=== PATIENT | male | born 1950 | race Caucasian/White ===

== ENCOUNTER 2018-04-19 10:32 | Emergency (ER) | payer MEDICARE, OTHER, SELFPAY ==
[2018-04-19 11:06] VITALS: BP 159/96; PULSE 85; RESP 18; O2SAT 94
--- NOTE | 2018-04-19 11:28 | PC.NURSE ---
with chronic back pain, evaluated and treated at [facility], dexamethasone,dexim,fentanyl and valium,shot of lidocaine, ketamine,lidocare patch, tylenol and motrin. states, no relief, still with difficulty with movement and ambulation, pt dc at 6am, pt remain in his car for 5-6 hours, on arrival pt assisted with ems to [facility].
--- NOTE | 2018-04-19 11:31 | DI.MRI.S_ITS ---
PROCEDURE: MR LUMBAR SPINE WO/W CON INDICATIONS: back pain, fever, change in BM habits, possible infection or tumor. TECHNIQUE: Noncontrast sagittal T1 spin echo and T2 fast spin echo, sagittal STIR, axial T1 and T2 fast spin echo through the lumbar spine. In cases with scoliosis, additional coronal T2 fast spin echo may be performed. After the administration of contrast, sagittal and axial T1 spin echo with fat saturation through the lumbar spine. COMPARISON: [facility], , L-SPINE 2-3 VIEWS, 08/14/2013, 15:21. FINDINGS: Image quality: Excellent. Alignment and curvature: There is normal bony alignment. Marrow: Marrow is of normal overall signal. No acute vertebral body compression fractures. No suspicious marrow enhancement. Spinal cord: Conus medullaris terminates at the L1 level. Visualized spinal cord demonstrates normal signal, without suspicious enhancement. Paraspinous soft tissues: No paravertebral masses or abnormal enhancement. Note is made of a inferior left renal cortical simple appearing cyst, measuring up to 4.8 cm in maximal dimension. T12-L1: Moderate degenerative disc disease with a posterior broad-based transverse disc bulge, greater on the left than the right, with asymmetric foraminal stenosis mild on the right and moderate on the left with likelihood of asymmetric left-sided T12 nerve root impingement. L1-L2: Normal appearance. L2-L3: There is a mild to moderate degree of degenerative disc height reduction and desiccation with a mild posterior transverse disc bulge. Mild to moderate ligamentum flavum hypertrophy is present at this level, with mild concentric spinal stenosis as a result. L3-L4: Minimal degenerative disc disease, slight posterior disc bulge. Severe facet osteoarthritis with hyperostosis and prominent ligamentum flavum hypertrophy resulting in moderately severe spinal stenosis and asymmetric right greater than left foraminal stenosis asymmetrically impinging on the course of the L3 nerve roots, right greater than left. L4-L5: Mild degenerative disc disease, moderately severe bilateral facet osteoarthritis greater on the left than the right with moderate left and mild to moderate right foraminal stenosis and potential for asymmetric impingement on the course of the L4 nerve roots. L5-S1: Moderately severe to severe degenerative disc disease with disc height reduction and desiccation. There is symmetric moderately severe foraminal stenosis, but no spinal stenosis. What appeared to be postoperative changes of left sided laminotomy is present at this level. IMPRESSION: 1. No sign of underlying infection or neoplasm, or trauma/osteoporotic compression fracture. 2. Overall there is moderately severe degenerative disc disease and facet osteoarthritis as was previously the case. Plain film imaging 08/14/13. A definite interval worsening has not developed. Slight retrolisthesis of L5 on S1 is again noted, previously present. 3. There is moderately severe spinal stenosis at L3-4 due to the combined influences of a relatively mild degree of degenerative disc disease at this level but quite severe facet osteoarthritis and ligamentum flavum hypertrophy. 4. A disc herniation is not found. There is multilevel nerve root impingement along the lumbosacral neural foramen both symmetric and asymmetric as discussed in detail by level in the body of the report above, chronic. 5. What appears to be postsurgical change of left sided laminotomy is seen at L5-S1, without operative complication. Minimal subluxation is present along the lumbosacral spine, mild grade 1 at L5-S1 as was previously the case in 2013. Dictated by: Jose Castle M.D. on 04/19/2018 at 15:52 Approved by: Jose Castle M.D. on 04/19/2018 at 16:04
[2018-04-19 13:16] VITALS: BP 143/83; PULSE 77; RESP 12; O2SAT 100
--- NOTE | 2018-04-19 13:57 | ED_ITS ---
HPI - Extremity Injury (Lower) General Chief Complaint: Extremity Injury, Lower Stated Complaint: LOWER BACK PROBLEM Time Seen by Provider: 04/19/18 11:11 Source: patient, family and EMS Mode of arrival: EMS Limitations: no limitations History of Present Illness HPI Narrative: 67-year-old male with longstanding history of back problems presents to the emergency department via EMS for evaluation of terrible back pain with radiation to his right leg. He denies any specific injury but does state that he was bending over helping keep his dog in a particular position and his pain started after that. He denies specific bony injury. He denies neurologic symptoms such as numbness, weakness or bowel or bladder problems. He denies ft drop. His pain is intermittently worse upon standing and radiates along his lateral leg beyond his knee. He was seen and evaluated [facility] this morning and after a very thorough evaluation with multiple attempts at pain control he was sent home, placed in the back of his Subaru [place]ast[place] Onset (ago): hour(s) Severity: severe Severity scale (1-10): 10 Relieving factors: immobilization Exacerbating factors: weight bearing and movement Related Data Home Medications Medication Instructions Recorded Confirmed testosterone cypionate 1 dose IM DIRECTED 04/19/18 04/19/18 Previous Rx's Medication Instructions Recorded cyclobenzaprine 10 mg PO TID PRN #14 tab 04/19/18 hydrocodone-acetaminophen 1 tab PO Q4-6H PRN #14 tab 04/19/18 ibuprofen 600 mg PO TID-QID PRN #20 tab 04/19/18 methylprednisolone [Medrol (Delon)] See Label Instructions PO PER PKG 04/19/18 DIR #21 each walker #1 each 04/19/18 Allergies Allergy/AdvReac Type Severity Reaction Status Date / Time No Known Drug Allergies Allergy Verified 04/19/18 11:10 Review of Systems Review of Systems All systems reviewed & are unremarkable except as noted in HPI and below Constitutional Denies chills, Denies fever(s), Denies lethargy and Denies weakness Eyes Denies change in vision, Denies eye discharge, Denies irritation and Denies loss of vision ENT Ears, Nose, Mouth, and Throat: Denies change in voice, Denies neck pain and Denies sore throat Cardiovascular Denies chest pain, Denies irregular heart rhythm, Denies lightheadedness, Denies palpitations, Denies dyspnea, Denies dyspnea on exertion and Denies orthopnea Respiratory Denies cough, Denies dyspnea, Denies dyspnea on exertion and Denies wheezing Gastrointestinal Gastrointestinal: Denies abdominal pain, Denies change in bowel habits, Denies diarrhea, Denies nausea and Denies vomiting Genitourinary Denies hematuria, Denies flank pain, Denies urinary incontinence and Denies urinary urgency Musculoskeletal Reports limited range of motion, Denies neck pain and Reports radiating pain into limb Integumentary/Breasts Denies pruritus, Denies erythema, Denies rash and Denies wounds Neurologic Denies confusion, Denies loss of vision and Denies weakness Psychiatric Denies anxiety, Denies confusion, Denies depression, Denies homicidal ideation and Denies suicidal ideation Endocrine Denies palpitations Hematologic/Lymphatic Denies easy bruising Allergic/Immunologic Denies wheezing PFSH Social History Smoking Status: Never smoker Exam Narrative Exam Narrative: 67-year-old male requires EMS help to get him out of his car, obviously in pain Initial Vital Signs Initial Vital Signs: Vital Signs Pulse Rate 85 04/19/18 11:06 Respiratory Rate 18 04/19/18 11:06 Blood Pressure 159/96 H 04/19/18 11:06 Pulse Oximetry 94 04/19/18 11:06 Const General: cooperative and well developed Nutritional Appearance: well nourished Orientation: alert, awake, oriented x3 and not confused [facility] Head: normocephalic and atraumatic Ears: external ears normal and TM's normal bilaterally Nose: external nose normal and No nasal discharge Face and sinus: sinuses nontender, face symmetric, no sinus tenderness and No dry mucous membranes Mouth: oral mucosae normal and moist mucous membranes Teeth and gingiva: dentition normal Throat: tonsils normal and uvula midline Neck Neck: normal visual inspection, trachea midline, No lymphadenopathy, No midline deformity and No JVD Lymphatic: No lymphedema Chest Chest: normal inspection of the chest Resp Effort & Inspection: normal respiratory effort, able to speak in complete sentences, no respiratory distress and no use of accessory muscles Auscultation: clear to auscultation bilaterally, no rales, no rhonchi and no wheezes GI Inspection: non-distended Palpation: soft, no hepatosplenomegaly, No guarding, No pulsatile mass and No tender Auscultation: normal bowel sounds Back/Spine/Pelvis Back: back tenderness, No CVA tenderness and No erythema Cervical Spine: normal cervical lordosis Thoracic/Lumbar Spine: thoracic and lumbar spine normal to inspection, surgical scar(s) present, thoraco-lumbar ROM limited and straight leg raise positive Sacroiliac Joints: nontender Skin General: no rashes or lesions noted, No jaundice and No petechiae Neuro General: alert, oriented x3, gait normal and no focal motor deficits Speech: speech normal Extrem General: full ROM, no clubbing, cyanosis or edema, no pedal edema and no calf tenderness Course Orders Ordered: ED Orders 04/19/18 11:31 MR lumbar spine wo/w con Stat Reevaluation(s) Reevaluation #1: Patient able to ambulate, slowly but relatively comfortably after above-stated medications. Vital Signs - 8 hr 04/19/18 11:06 04/19/18 13:16 04/19/18 15:27 Pulse Rate 85 77 76 Respiratory Rate 18 12 18 Blood Pressure 159/96 H Blood Pressure [Right Arm] 143/83 H 140/79 H Pulse Oximetry 94 100 92 MDM - Extremity Injury (Lower) Differential Diagnosis Likely other (Epidural abscess, diskitis, osteomyelitis of the spine, as well as etiologies of the hip including labral tear, OA, etc. ) Medical Records Attestation: I reviewed the patient's medical records. Lab Data Attestation: I reviewed the patient's lab results. Imaging Data MRI - lumbar: Radiologist's impression: PROCEDURE: MR LUMBAR SPINE WO/W CON INDICATIONS: back pain, fever, change in BM habits, possible infection or tumor. TECHNIQUE: Noncontrast sagittal T1 spin echo and T2 fast spin echo, sagittal STIR, axial T1 and T2 fast spin echo through the lumbar spine. In cases with scoliosis, additional coronal T2 fast spin echo may be performed. After the administration of contrast, sagittal and axial T1 spin echo with fat saturation through the lumbar spine. COMPARISON: [facility], , -SPINE 2-3 VIEWS, 08/14/2013, 15:21. FINDINGS: Image quality: Excellent. Alignment and curvature: There is normal bony alignment. Marrow: Marrow is of normal overall signal. No acute vertebral body compression fractures. No suspicious marrow enhancement. Spinal cord: Conus medullaris terminates at the L1 level. Visualized spinal cord demonstrates normal signal, without suspicious enhancement. Paraspinous soft tissues: No paravertebral masses or abnormal enhancement. Note is made of a inferior left renal cortical simple appearing cyst, measuring up to 4.8 cm in maximal dimension. T12-L1: Moderate degenerative disc disease with a posterior broad-based transverse disc bulge, greater on the left than the right, with asymmetric foraminal stenosis mild on the right and moderate on the left with likelihood of asymmetric left-sided T12 nerve root impingement. L1-L2: Normal appearance. L2-L3: There is a mild to moderate degree of degenerative disc height reduction and desiccation with a mild posterior transverse disc bulge. Mild to moderate ligamentum flavum hypertrophy is present at this level, with mild concentric spinal stenosis as a result. L3-L4: Minimal degenerative disc disease, slight posterior disc bulge. Severe facet osteoarthritis with hyperostosis and prominent ligamentum flavum hypertrophy resulting in moderately severe spinal stenosis and asymmetric right greater than left foraminal stenosis asymmetrically impinging on the course of the L3 nerve roots, right greater than left. L4-L5: Mild degenerative disc disease, moderately severe bilateral facet osteoarthritis greater on the left than the right with moderate left and mild to moderate right foraminal stenosis and potential for asymmetric impingement on the course of the L4 nerve roots. L5-S1: Moderately severe to severe degenerative disc disease with disc height reduction and desiccation. There is symmetric moderately severe foraminal stenosis, but no spinal stenosis. What appeared to be postoperative changes of left sided laminotomy is present at this level. IMPRESSION: 1. No sign of underlying infection or neoplasm, or trauma/osteoporotic compression fracture. 2. Overall there is moderately severe degenerative disc disease and facet osteoarthritis as was previously the case. Plain film imaging 08/14/13. A definite interval worsening has not developed. Slight retrolisthesis of L5 on S1 is again noted, previously present. 3. There is moderately severe spinal stenosis at L3-4 due to the combined influences of a relatively mild degree of degenerative disc disease at this level but quite severe facet osteoarthritis and ligamentum flavum hypertrophy. 4. A disc herniation is not found. There is multilevel nerve root impingement along the lumbosacral neural foramen both symmetric and asymmetric as discussed in detail by level in the body of the report above, chronic. 5. What appears to be postsurgical change of left sided laminotomy is seen at L5-S1, without operative complication. Minimal subluxation is present along the lumbosacral spine, mild grade 1 at L5-S1 as was previously the case in 2013. Dictated by: Jose Castle M.D. on 04/19/2018 at 15:52 Approved by: Jose Castle M.D. on 04/19/2018 at 16:04 [facility] Narrative Medical decision making narrative: Multiple diagnoses including epidural abscess , diskitis, spinal cord compression, and hip etiologies including labral tear, arthritis versus others. Radiation of pain and worsening with axial load with possible subjective recent fever lead me to MRI of lumbar spine. These findings were unremarkable and patient responded well to appropriate meds. He has an upcoming appointment with Orthopedics and knows he may return for worsening or persistent symptoms Discharge Plan Departure Patient Disposition: Home, Self-Care Clinical Impression: Lumbar pain Instructions: Back Pain (Alternative Therapy), DI for Back Pain With Sciatica Activity Restrictions/Additional Instructions: You have been prescribed narcotic medications. While on these medications you cannot drive or operate heavy machinery. Additionally you cannot sign legal documents or perform any duties such as this. Many people get constipated on narcotic medications so it would be advisable to discuss stool softeners with the pharmacist when you pickler helper your prescription. Please understand that we cannot provide further refills of narcotics or controlled substances through the ED and your pain management will need to be through your Primary Care Provider Prescriptions: New cyclobenzaprine 10 mg tablet 10 mg PO TID PRN (Reason: muscle spasm) Qty: 14 RF: 0 hydrocodone-acetaminophen 5-325 mg tablet 1 tab PO Q4-6H PRN (Reason: pain) Qty: 14 RF: 0 ibuprofen 600 mg tablet 600 mg PO TID-QID PRN (Reason: pain) Qty: 20 RF: 0 methylprednisolone [Medrol (Delon)] 4 mg tablets,dose pack See Label Instructions PO PER PKG DIR Qty: 21 RF: 0 walker misc .ROUTE .MEDSUPPLY Qty: 1 RF: 0 No Action testosterone cypionate 100 mg/mL oil 1 dose IM DIRECTED RF: 0
[2018-04-19 15:27] VITALS: BP 140/79; PULSE 76; RESP 18; O2SAT 92
--- NOTE | 2018-04-19 17:00 | PC.NURSE ---
tolerated ambulation with walker, with steady gait, pt ambulate to bathroom, able to void. states, tolerated sitting and standing. pt also tolerating drinking water.
[2018-04-19 17:24] VITALS: BP 155/83; PULSE 71; RESP 16; O2SAT 98
== END 2018-04-19 17:25 | disposition home or self-care (01) ==
PROVIDERS: Emergency Provider Emergency Medicine
DX: M54.5 Low back pain (principal)
CPT/HCPCS: 72158; 81003; 99282; 99284

== ENCOUNTER → 2018-12-14 12:26 | Outpatient (CLI) | payer MEDICARE, OTHER, SELFPAY ==
--- NOTE | 2018-12-14 | DI.CT.S_ITS ---
PROCEDURE: CT SINUS SCREEN WO CON INDICATIONS: ACUTE SINUSITIS TECHNIQUE: Noncontrast 3.0 mm axial images acquired from the frontal sinuses to the mid-sella, with coronal and sagittal reformats. For radiation dose reduction, the following was used: automated exposure control, adjustment of mA and/or kV according to patient size. COMPARISON: None. FINDINGS: Image quality: Excellent. Mild mucosal thickening noted in the maxillary sinuses bilaterally and scattered throughout the anterior ethmoid air cells. Mild mucosal thickening noted in the left sphenoid sinus. Mild mucosal thickening noted in the right frontal sinus. 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 The ostiomeatal units are patent bilaterally. No air-fluid levels are identified. Nasal septum is deviated to the left. 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 Paradoxical right middle turbinate noted. No osseous thickening, osseous remodeling or osseous erosive change. Atherosclerotic calcifications noted in the cavernous segments of the internal carotid arteries. IMPRESSION: 1. Mild mucosal thickening involving the maxillary sinuses bilaterally, the ethmoid air cells bilaterally, the right frontal sinus and the left sphenoid sinus. 2. No air-fluid levels. 3. Leftward deviation of nasal septum. 4. Small bilateral owen bullosa. Dictated by: Mariela Gandhi MD, PhD on 12/14/2018 at 13:14 Approved by: Mariela Gandhi MD, PhD on 12/14/2018 at 13:18
== END ==
PROVIDERS: PCP Family Medicine; Visit Provider Family Medicine
DX: J01.90 Acute sinusitis, unspecified (principal); J32.4 Chronic pansinusitis; J30.9 Allergic rhinitis, unspecified; J34.2 Deviated nasal septum; J34.3 Hypertrophy of nasal turbinates
CPT/HCPCS: 70486

== ENCOUNTER → 2020-08-14 18:01 | Outpatient (CLI) | payer MEDICARE, OTHER, SELFPAY ==
--- NOTE | 2020-08-14 18:04 | DI.MRI.S_ITS ---
PROCEDURE: MR LUMBAR SPINE WO CON INDICATIONS: Spinal Stenosis,Lumbar region with neurolgenic CLA TECHNIQUE: Noncontrast sagittal T1 spin echo and T2 fast echo, sagittal STIR, axial T1 and T2 fast spin echo through the lumbar spine. In cases with scoliosis, additional coronal T2 fast spin echo may be performed. COMPARISON: Lumbar spine x-rays August 09, 2020. FINDINGS: Image quality: Excellent. Alignment and Curvature: There is mild L3-L4 anterolisthesis secondary to facet hypertrophy. There is trace L4-L5 anterolisthesis. There is mild T12-L1 retrolisthesis. There is trace L1-L2 and L2-L3 retrolisthesis. Bone Marrow: Reactive endplate changes noted adjacent to the T12-L1, L3-L4, L4-L5 and L5-S1 discs. No acute vertebral body compression fractures. Spinal Cord: Conus medullaris terminates at the L1 level. Visualized cord demonstrates normal signal and size. Paraspinous Soft Tissues: No paravertebral masses. T12-L1: Loss of disc space signal and height. Moderate, diffuse disc bulge. Mild bilateral facet hypertrophy. Mild ligamentum flavum hypertrophy. Mild to moderate narrowing of the central canal. Moderate right and severe left neural foraminal narrowing with compression of the exiting left T12 nerve root. L1-L2: Loss of disc signal. Mild, diffuse disc bulge. Mild bilateral facet hypertrophy. Mild ligamentum flavum hypertrophy. Mild narrowing of the central canal. Moderate bilateral neural foraminal narrowing. No neural compression. L2-L3: Loss of disc signal and slight loss of disc height. Moderate, diffuse disc bulge. Mild bilateral facet hypertrophy. Moderate ligamentum flavum hypertrophy. Severe narrowing of the central canal with slight compression of the nerve roots of the cauda equina. Severe right and moderate left neural foraminal narrowing with compression of the exiting right L2 nerve root. L3-L4: Loss of disc signal. Moderate, diffuse disc bulge. Severe facet and severe ligamentum flavum hypertrophy. Severe narrowing of the central canal with marked compression of the nerve roots of the cauda equina. Severe bilateral neural foraminal narrowing with compression of the exiting L3 nerve roots. L4-L5: Loss of disc signal. Mild, diffuse disc bulge. Moderate bilateral facet hypertrophy. Mild to moderate narrowing of the central canal. Moderate right and severe left neural foraminal narrowing with compression of the exiting left L4 nerve root. L5-S1: Loss of disc signal and height. Mild, diffuse disc bulge. Mild bilateral facet hypertrophy. No central stenosis. Mild right and severe left neural foraminal narrowing with compression of the exiting left L5 nerve root. IMPRESSION: 1. Multilevel degenerative disc disease. 2. Multilevel facet arthropathy. 3. Severe L2-L3 and L3-L4 central canal narrowing. 4. Severe left T12-L1, L4-L5 and L5-S1 neural foraminal narrowing. Severe right L2-L3 neural foraminal narrowing. Severe bilateral L3-L4 neural foraminal narrowing. Dictated by: Mariela Gandhi MD, PhD on 08/14/2020 at 17:58 Approved by: Mariela Gandhi MD, PhD on 08/14/2020 at 18:03
== END ==
PROVIDERS: PCP Family Medicine; Referring Provider Orthopaedic Surgery; Visit Provider Physical Medicine & Rehabilitation
DX: M48.062 Spinal stenosis, lumbar region with neurogenic claudication (principal); M48.07 Spinal stenosis, lumbosacral region; M51.36 Other intervertebral disc degeneration, lumbar region; M51.37 Other intervertebral disc degeneration, lumbosacral region; M47.816 Spondylosis without myelopathy or radiculopathy, lumbar region; M47.817 Spondylosis without myelopathy or radiculopathy, lumbosacral region
CPT/HCPCS: 72148

== ENCOUNTER → 2020-10-31 11:47 | Outpatient (CLI) | payer MEDICARE, OTHER, SELFPAY ==
[2020-10-31 12:58] LABS: Add Manual Diff / Slide Review NO; Basophils Absolute Auto 100 /uL (0-100); Basophils Percent Auto 0.9 % (0-2); Eosinophils Absolute Auto 200 /uL (0-450); Hematocrit 48.7 % (41-53); Hemoglobin 16.2 g/dL (13.5-17.5); Lymphocytes Absolute Auto 1700 /uL (1100-4500); Lymphocytes Percent Auto 21.5 % (25-40); Mean Corpuscular HGB Conc 33.3 % (30-36); Mean Corpuscular Volume 93.2 fL (80-100); Monocytes Absolute Auto 800 /uL (0-900); Monocytes Percent Auto 9.7 % (3-14); Neutrophils Absolute Auto 5200 /uL (1500-7000); Neutrophils Percent Auto 65.9 % (50-75); Platelet Count 211 X10^3/uL (150-400); Red Blood Cell Count 5.22 X10^6/uL (4.5-5.9); Red Cell Distribution Width 13.8 % (11.6-14.8); White Blood Cell Count 7.9 X10^3/uL (4.5-11.0)
== END ==
PROVIDERS: PCP Family Medicine; Referring Provider Orthopaedic Surgery; Visit Provider Orthopaedic Surgery
DX: Z01.818 Encounter for other preprocedural examination (principal); Z01.812 Encounter for preprocedural laboratory examination
CPT/HCPCS: 36415; 85025; 93005

== ENCOUNTER → 2020-11-11 09:09 | Outpatient (CLI) | payer MEDICARE, OTHER, SELFPAY ==
[2020-11-11 10:07] LABS: COVID19 -Nasal RAPID Negative (Negative)
== END ==
PROVIDERS: PCP Family Medicine; Visit Provider Nurse Practitioner Family
DX: Z01.812 Encounter for preprocedural laboratory examination (principal); Z20.822 Contact with and (suspected) exposure to COVID-19
CPT/HCPCS: 87635; C9803

== ENCOUNTER 2020-11-12 12:14 | Day surgery (SDC) | payer MEDICARE, OTHER, SELFPAY ==
[2020-11-06 13:29] VITALS: BMI 25.4
[2020-11-12] VITALS (12 sets, daily range): BP systolic 110–175; BP diastolic 55–96; PULSE 84–97; RESP 7–19; TEMP 36.3–38.1; O2SAT 91–98; BMI 25.4
--- NOTE | 2020-11-12 12:44 | PM.PREOP ---
Pre-operative Note COVID-19 COVID-19 status: Negative Result date/Date tested (Pos, Neg/Pending): 11/11/20 Interval Note History & Physical reviewed/Exam performed by Physician: Yes Changes to H&P: Yes H&P completed within 30 days and has changed as indicated here:: He scraped his left lora several days ago. He has a large 8 x 2 cm abrasion area along the anterior left lora. No erythema or induration or drainage. No sign of infection.
--- NOTE | 2020-11-12 12:54 | SUR.OPER ---
Prone on spine table, head in foam head support, padded chest and pelvic supports, gel pad at knees, lower legs supported by pillows; nipples, genitalia and toes free of pressure, arms secured on foam padded arm boards at <90 degrees abduction. Tape over blanket at thigh secured to table.
[2020-11-12] MEDS: LACTATED RINGERS 1,000 ML 42 ML IV ×2 (12:55→16:01)
--- NOTE | 2020-11-12 12:55 | SUR.PREOP ---
Selina lora wound shown to Dr. Hernandez no new orders.
--- NOTE | 2020-11-12 13:02 | SUR.PREOP ---
Wound to lshin cleansed with saline and covered with allyven dressing.
[2020-11-12] MEDS: CEFAZOLIN 2 GM/100 ML FROZ.PIGGY IV ×2 (13:42→22:40)
[2020-11-12] MEDS: BUPIVACAINE 0.25% (PF) 8 ML, fentaNYL 100 MCG INJ (14:09)
[2020-11-12] MEDS: VANCOMYCIN 1,000 MG VIAL 1000 MG TOP (14:10)
[2020-11-12] MEDS: SODIUM CHLORIDE 0.9% 1,000 ML, GENTAMICIN 80 MG IRR (14:10)
[2020-11-12] MEDS: THROMBIN (RECOMBINANT) 5,000 UNIT VIAL 5000 UNIT TOP (14:10)
--- NOTE | 2020-11-12 14:15 | DI.RAD.S_ITS ---
PROCEDURE: XR LUMBAR SPINE 2-3V INDICATIONS: LAMINECTOMY TECHNIQUE: 2 views of the lumbar spine were acquired. COMPARISON: [facility], , L-SPINE 2-3 VIEWS, 08/14/2013, 15:21. FINDINGS: Bones: The frontal and lateral digital acquisition images show a metallic port with metallic probe overlying the posterior elements of the L3-L4 level, centered to the right of midline. Soft tissues: Overlying bowel gas pattern is normal. No suspicious soft tissue calcifications. IMPRESSION: L3-L4 localization of the posterior elements best seen on the lateral view. Dictated by: Jose Castle M.D. on 11/12/2020 at 15:21 Approved by: Jose Castle M.D. on 11/12/2020 at 15:24
--- NOTE | 2020-11-12 16:28 | PM.OP.1 ---
Operative Date/Time/Diagnoses Date of procedure: 11/12/20 Time of procedure: 16:28 Pre-op diagnosis: Lumbar stenosis with radiculopathy Post-op diagnosis: same Procedure & Clinicians Procedure: L2-3, L3-4 laminectomies Use of microscope Placement of epidural catheter Same procedure as scheduled: Yes Indications: [age] year old male with intractable pain from stenosis. They had failed conservative management and requested operative intervention. Risks and benefits of surgery were discussed and appropriate consents were obtained. Surgeon: Kd Hernandez [employer] Mud Analysis Captain: Madai Cordova Anesthesia Type: General Operative Notes Findings: None Closure Type: primary Specimen(s): none sent Estimated Blood Loss (mL): 100 Procedure in detail: Patient was brought to the operating room and intubated on the table. A time-out was performed. There were rolled over the well-padded prone position on the Javier table. The back was prepped and draped in standard sterile fashion. Preoperative antibiotics were given. Using fluoroscopy, a 3 cm incision was made to the well marked right of the midline at the L3-4 level. We used Bovie to come down to and split the fascia. We then used the [employer] MaXcess dilators with fluoroscopy and then opened our retractors. The soft tissue was cleared off with Bovie, a marker was placed, an x-ray was taken to confirm positioning. There was a fair amount of scar tissue from his previous surgery at L4-5 but were able to finally dissect down to the lamina and get a good exposure. We then brought in the microscope. A combination of high-speed bur and Kerrison were used to perform a right-sided laminectomy at L3-4. There was a fair amount of scar from his previous surgery at L4-5 and we had to move the retractor up higher to try to get a clear working path to be able to go back distally. This was exceedingly tight due to a massive facet cyst on the right. We were finally able to get decent exposure into a normal part of the canal and then work our way distally. We reached across to the opposite side and decompressed the facet hypertrophy and ligamentum hypertrophy. Once we had this decompressed and the opposite side, we were able to move around the facet cyst much easier as there was more room in the canal. We finally were able to remove all of this. There was also some extruded material from his disc herniation on the right-hand side and the dura was carefully swept medially while we removed this tissue. We had fully decompressed the canal with the traversing L4 through S1 roots as well as decompress the foramen with the exiting L3 root. We then moved our retractor up a level. Again we cleared this off and got a good exposure. We used the bur and the Kerrison to perform a laminectomy from the right-hand side. We carefully reach across the opposite side and decompressed the opposite side.. We worked our way distally until we had completed the channel from L4 all the way up to L2 and a ball probe was used to confirm that everything was open. The laminectomy had fully clear the spinal canal with the traversing L3 through S1 roots as well as the exiting L2 root. The wound was then copiously irrigated. An epidural catheter was filled with 100 mcg of fentanyl and 8 mL of 0.25% Marcaine. The dura was carefully depressed under the laminotomy site and the catheter was advanced 6 cm cephalad. The retractor was removed and the fascia was closed. The epidural catheter was then injected without resistance and removed. Vancomycin powder was placed in the wound. Superficial and skin were closed. Sterile dressing was placed. The patient was then rolled over, transferred to the stretcher, and brought to recovery room without complications. Complications: none Post-operative Condition: stable Disposition: PACU Plan for aftercare: Overnight admission. Up with PT
[2020-11-12] MEDS: LACTATED RINGERS 1,000 ML 125 ML IV (17:17)
[2020-11-12] MEDS: CELECOXIB 200 MG CAPSULE 400 MG PO (17:19)
[2020-11-12] MEDS: GABAPENTIN 600 MG TABLET PO (21:01)
[2020-11-12] MEDS: CELECOXIB 200 MG CAPSULE PO (21:01)
--- NOTE | 2020-11-12 23:27 | PC.NURSE ---
pt ambulated to the bathroom [id number], UOP 500cc.
[2020-11-13 00:35] VITALS: BP 136/92; PULSE 95; RESP 18; TEMP 36.6; O2SAT 95
[2020-11-13] MEDS: LACTATED RINGERS 1,000 ML 125 ML IV (01:18)
--- NOTE | 2020-11-13 01:42 | PC.NURSE ---
0034 patient is alert and oriented. Breath sounds CTA; oxygen at 1.5L/min with sat of 95% so decreased O2 to 1L/min and will continue to titrate until off. HRR with BP of 136/96. Denies nausea. BT hypoactive but patient states he has passed flatus. Up to bathroom with walker and 1 assist; slight feeling of lightheadedness upon getting to edge of bed. Denies dysuria, frequency or urgency with urination. Is able to turn self and is log rolling appropriately. Dressing to back with red drainage at lower end but without leakage. Allevyn dressing to left anterior lower leg is CDI; reports he sustained an abrasion tripping over some boxes at home prior to hospitalization. Had 2/10 stinging pain at start of shift which he states has now resolved. Wearing bilateral foot SCD's. Fall risk score is moderate and bed alarm is activated.
[2020-11-13 05:18] VITALS: BP 134/83; PULSE 73; RESP 18; TEMP 36.5; O2SAT 95
[2020-11-13] MEDS: CEFAZOLIN 2 GM/100 ML FROZ.PIGGY IV (05:27)
[2020-11-13 06:36] LABS: Hemoglobin 14.4 g/dL (13.5-17.5)
--- NOTE | 2020-11-13 07:28 | PM.PNPO.1 ---
Subjective Subjective Date Patient Seen: 11/13/20 Time Patient Seen: 07:29 Interval history: Doing great. No pain meds needed. Up and walking and no more leg pain. Exam Vital Signs (past 8 hours): - 11/13/20 00:35 11/13/20 05:18 Temperature 97.8 F 97.7 F Pulse Rate 95 H 73 Respiratory Rate 18 18 Blood Pressure 136/92 H 134/83 Pulse Oximetry 95 95 Oxygen Delivery Method Nasal Cannula Oxygen Flow Rate 0 Const Orientation: alert and oriented x3 Back/Spine/Pelvis Other: Mild to moderate drainage. 5/5 motor both lower extremities. Objective Labs Result Diagrams: 11/13/20 05:54 Labs: Laboratory Results - last 24 hr 11/13/20 05:54 Hgb 14.4 Hct 44.0 PFSH Medical History (Updated 11/06/20 @ 14:17 by Pau Reyes RN) Arthritis Enlarged prostate History of Mohs micrographic surgery for skin cancer HLD (hyperlipidemia) Sciatica Surgical History (Updated 11/06/20 @ 14:17 by Pau Reyes RN) H/O cataract extraction (2011) History of arthroscopy of both knees (1992) History of YAG laser capsulotomy of lens of left eye (11/2017) Hx of hernia repair (1950) Hx of laminectomy (12/1968) Hx of laminectomy (10/1992) Hx of tonsillectomy (1954) Hx of vitrectomy (09/09/11) Social History household members: spouse Smoking Status: Former smoker alcohol intake: current Assessment & Plan Post-op Postoperative Procedures: Procedures Operation Date: 11/12/20 13:45 Actual Procedures Side Surgeon p L23 & L34 laminectomy & discectomy Kd Hernandez MD He is doing great. Mobilize with physical therapy and then discharge home today.
[2020-11-13 07:45] VITALS: BP 130/85; PULSE 72; RESP 17; TEMP 37.1; O2SAT 97
[2020-11-13] MEDS: CELECOXIB 200 MG CAPSULE PO (09:34)
[2020-11-13] MEDS: GABAPENTIN 600 MG TABLET PO (09:34)
[2020-11-13] MEDS: DOCUSATE 100 MG CAPSULE PO (09:34)
--- NOTE | 2020-11-13 10:14 | PT.IIE ---
Current Diagnoses Spinal stenosis, lumbar region with neurogenic claudication (11/12/20) Intervertebral disc disorders with radiculopathy, lumbar region (11/12/20) Surgery Performed Operation Date: 11/12/20 13:45 Actual Procedures p L23 & L34 laminectomy & discectomy - Kd Hernandez MD Surgical History (Last Updated 11/06/20 @ 14:17 by Pau Reyes RN) H/O cataract extraction (2011) History of arthroscopy of both knees (1992) History of YAG laser capsulotomy of lens of left eye (11/2017) Hx of hernia repair (1950) Hx of laminectomy (12/1968) Hx of laminectomy (10/1992) Hx of tonsillectomy (1954) Hx of vitrectomy (09/09/11) Medical History (Last Updated 11/06/20 @ 14:17 by Pau Reyes RN) Arthritis Enlarged prostate History of Mohs micrographic surgery for skin cancer HLD (hyperlipidemia) Sciatica Physical Therapy Inpatient Evaluation/Re-Eval M1 PT/OT-IP Prior Functional Status Start: 11/13/20 12:07 Freq: NEEDED Status: Active Protocol: Document 11/13/20 10:14 AB (Rec: 11/13/20 12:15 AB [id number]) Medical Review Prior Functional Status Medical History Reviewed Yes Communication able to make needs known Mobility and Gait pt stated that he is indpeendent with all mobilities and ambulation without AD Social History Household Members spouse Living Arrangements House Number of Floors (Floors) One Floor Number of Stairs To Enter/Railing? 2 steps without rail but has L side support Home Environment High Toilet,Walk in Shower, Built-In Shower Seat Home Equipment Straight Cane Employment Status Retired M2 PT-IP Current Condition Start: 11/13/20 12:07 Freq: NEEDED Status: Active Protocol: Document 11/13/20 10:14 AB (Rec: 11/13/20 12:15 AB [id number]) Physical Therapy Current Condition Current Condition Evaluation Date 11/13/20 Treatment Diagnosis s/p L2-4 lami; difficulty in walking Onset Date 11/12/20 Precautions Lumbar Precautions Log Roll,No Twisting,Limit Bending,Lifting Restriction of 10 lbs,Gait Belt above Incisional Area M3 PT-IP Subjective Start: 11/13/20 12:07 Freq: NEEDED Status: Active Protocol: Document 11/13/20 10:14 AB (Rec: 11/13/20 12:15 AB [id number]) Subjective Physical Therapy Visit Type Type Initial Evaluation Visit Start Time 10:14 Visit Stop Time 10:45 Total Visit Minutes 31 Number of CHEMICALS DISTILLER Visits 0 Physical Therapy Visit Comments Patient Comments pt is agreeable to do PT Therapy Pain Assessment Pain When Pain Assessed At Rest Pain Present Pain Present Pain Reported Location lower back Intensity 1 Scale Used Numeric (0 - 10) Pain Management Techniques Apply Cold,Modification of Treatment,Re-positioning, Timing of Activity with Medications M4 PT-IP Mobility and Gait Start: 11/13/20 12:07 Freq: NEEDED Status: Active Protocol: Document 11/13/20 10:14 AB (Rec: 11/13/20 12:15 AB [id number]) PT-Bed Mobility Assessment Rolling Type of Rolling Log Rolling Level of Assist Standby Assistance Supine to Sit Supine to Sit Standby Assistance PT-Transfer Assessment Sit to and From Stand Sit to and from Stand Standby Assistance Equipment Transfer Assistive Device Gait Belt,Straight Cane Orthotic/Prosthetic Devices or Brace: No Transfers Transfer Destination Chair Transfer Technique ambulated using SPC Transfer Ability Level of Assist Standby Assistance Comments Mobility Comments reviewed back precautions and log roll bed mobility. pt completed supine tos ti SBA. educated on use of SPC and completed ambulation in room using SPC SBA ~ 20 ft. pt has steady gait. assessed ambulation without AD and pt completed ~ 100 ft SBA. completed up/down steps initially with L rail SBA and then without rail SBA. pt ambulated back to his room without AD SBA. agreed to sit up on chair. positioned on chair. call light and table placed within reach. Gait Assessment Gait Gait Assistance Required: Standby Assistance Distance (Feet) 100 Able to Maintain Weight Bearing Status Yes During Gait Assistive Devices Assistive Device None,Gait Belt Orthotic/Prosthetic Devices or Brace: No Factors Limiting Gait Function Factors Limiting Gait Function Decreased Activity Tolerance, Decreased Strength,Pain Comments Gait Comments pls refer to mobility section for details Stair Climbing Assessment Evaluation Level of Assist On Stairs Standby Assistance Devices Stair Climbing Assistive Devices Left Railing,Right Railing Technique/Endurance Stair Climbing Direction Ascend and Descend Stair Climbing Technique Step Over Step Number of Steps Climbed 3 Query Text: Stair Climbing Set # Repetitions (reps) 2 Comments Stair Climbing Comments pls refer to mobility section for details PT-Balance Assessment Sitting Balance and Reactions Static Sitting Balance Ability Normal Dynamic Sitting Balance Ability Normal Standing Balance and Reactions Static Standing Balance Ability Good Dynamic Standing Balance Ability Good Device Used without AD M5 PT-IP Objective Assessments Start: 11/13/20 12:07 Freq: NEEDED Status: Active Protocol: Document 11/13/20 10:14 AB (Rec: 11/13/20 12:15 AB [id number]) Orientation Orientation/Cognition Level of Alertness Alert Orientation Name,Age,Birthday,Place, Situation Safety Awareness Understands Safety Issues Gross Range of Motion Lower Extremity ROM Assessment Within Functional Limits Strength Lower Extremity Strength Assessment Within Functional Limits Sensation Assessment Sensation Gross Sensation WNL Muscle Tone Muscle Tone WNL Yes M6 PT-IP Treatment Start: 11/13/20 12:07 Freq: NEEDED Status: Active Protocol: Document 11/13/20 10:14 AB (Rec: 11/13/20 12:15 AB [id number]) Physical Therapy Treatment Education Education Provided Precautions,Weight Bearing Status,Post-Op Packet,Safety M7 PT-IP Assessment and Plan Start: 11/13/20 12:07 Freq: NEEDED Status: Active Protocol: Document 11/13/20 10:14 AB (Rec: 11/13/20 12:15 AB [id number]) PT Summary Assessment and Plan Potential Rehabilitation Potential Good Status of Condition at Evaluation Stable Summary Impairments Pain,ROM,Strength,Balance,Bed Mobility,Transfers,Gait, Activity Tolerance Assessment Summary pt requiring SBA with mobility without AD. pt plans to go home later today and spouse to assist him. pt may go home when medically stable. Goals Bed Mobility Goal Independent Transfer Goal Independent Gait Goal Independent Gait Distance 300 Other Goals up/down 2 steps without rail mod I Days to Meet Goals 3 Frequency of Treatment Frequency Of Treatment Twice a Day Treatment Plan Physical Therapy Treatment Plan Bed Mobility Training,Transfer Training,Gait Training, Therapeutic Exercise,Balance Retraining,Post Op Education, Discharge Planning,Hot or Cold Pack,Neuromuscular Re-ed, Coordination Retraining,Manual Therapy Recommendations To Nursing Amount of Assist Needed Standby Assistance Discharge Recommendations PT Discharge Recommendations Home with Assistance Transportation Needs at Discharge Private Vehicle
[2020-11-13 11:00] VITALS: PULSE 73; RESP 16; TEMP 36.7; O2SAT 97
--- NOTE | 2020-11-13 11:54 | OT.IP.EVAL ---
Current Diagnoses Spinal stenosis, lumbar region with neurogenic claudication (11/12/20) Intervertebral disc disorders with radiculopathy, lumbar region (11/12/20) Surgery Performed Operation Date: 11/12/20 13:45 Actual Procedures p L23 & L34 laminectomy & discectomy - Kd Hernandez MD Past Medical History (Last Updated 11/06/20 @ 14:17 by Pau Reyes, RN) Arthritis Enlarged prostate History of Mohs micrographic surgery for skin cancer HLD (hyperlipidemia) Sciatica Surgical History (Last Updated 11/06/20 @ 14:17 by Pua Reyes RN) H/O cataract extraction (2011) History of arthroscopy of both knees (1992) History of YAG laser capsulotomy of lens of left eye (11/2017) Hx of hernia repair (1950) Hx of laminectomy (12/1968) Hx of laminectomy (10/1992) Hx of tonsillectomy (1954) Hx of vitrectomy (09/09/11) Occupational Therapy Inpatient Evaluation/Re-Eval M1 PT/OT-IP Prior Functional Status Start: 11/13/20 12:07 Freq: NEEDED Status: Active Protocol: Document 11/13/20 12:17 [facility] (Rec: 11/13/20 12:33 [facility] [id number]) Medical Review Prior Functional Status Medical History Reviewed Yes Communication able to make needs known Mobility and Gait pt stated that he is indpendent with all mobilities and ambulation without AD Activities of Daily Living and IADL's Pt states at the end was having more difficulty to katie his socks and shoes. Social History Household Members spouse Living Arrangements House Number of Floors (Floors) One Floor Number of Stairs To Enter/Railing? 2 steps without rail but has L side support Home Environment High Toilet,Walk in Shower, Built-In Shower Seat Home Equipment Straight Cane Employment Status Retired M2 OT-IP Current Condition Start: 11/13/20 11:59 Freq: Status: Active Protocol: Document 11/13/20 12:17 [facility] (Rec: 11/13/20 12:33 [facility] [id number]) Occupational Therapy Current Condition Current Condition Evaluation Date 11/13/20 Treatment Diagnosis s/p L2-3, L3-4 laminectomies/ lumbar stenosis with radiuculopathy Diagnosis Onset Date 1/12/21 M3 OT- IP Subjective and Pain Start: 11/13/20 11:59 Freq: Status: Active Protocol: Document 11/13/20 12:17 [facility] (Rec: 11/13/20 12:33 [facility] [id number]) OT- Subjective Occupational Therapy Visit Type Type Initial Evaluation Visit Start Time 11:25 Visit Stop Time 11:54 Total Visit Minutes 29 Occupational Therapy Visit Comments Patient Comments Pt agreed to work with OT ,pt's present for OT eval. Patient/Caregiver Goals TO go home. OT Pain Assessment Pain When Pain Assessed At Rest Pain Present Pain Present Denied Pain M4 OT- IP ADL's Start: 11/13/20 11:59 Freq: Status: Active Protocol: Document 11/13/20 12:17 [facility] (Rec: 11/13/20 12:33 [facility] [id number]) OT [id number] Comments OT Self-Feeding Comments Not at meal time. OT ADL-Grooming General Evaluation Grooming Ability Standby Assistance Areas Needing Assistance Retrieving/Set-up of Grooming Items OT ADL-Oral Care General Eval Oral Care Ability Standby Assistance Comments Oral Care Comments Cues to hinge at hips and keep his back straight in order to spit into the sink or just spit into a cup to best follow his back precautions. OT ADL-Dressing General Eval Lower Body Dressing Ability Moderate Assistance Areas Needing Assistance Underpants/Brief,Socks Comments OT Dressing Comments Educated on use of in process inspector and sock aid. Pt's states will just assist pt with socks and shoes for now. Pt has a long in process inspector at home. OT ADL-Toileting General Evaluation Toileting Ability Standby Assistance Comments OT Toileting Comments Pt able to appropriately follow his back precautions in order to wipe while seated. Pt also educated may be easier to stand and wipe for safety. OT ADL-Bathing Comments OT Bathing Comments Pt states to shower at home. Pt's aware of all sfaety needs and to assist the pt. M5 OT- IP IADL's Start: 11/13/20 11:59 Freq: Status: Active Protocol: Document 11/13/20 12:17 [facility] (Rec: 11/13/20 12:33 [facility] [id number]) OT-Instrumental Activities of Daily Living Home Safety Awareness Awareness of Need for Assistance at Home Good Awareness Ability to Problem Solve Emergency Able to Problem Solve Situations Medication Management Medication Management Comments Pt's to assist as needed. Meal Preparation Meal Preparation Caregiver Provides Assist Painter Barrel Painter Barrel Caregiver Provides Assist M6 OT- IP Functional Cognition Start: 11/13/20 11:59 Freq: Status: Active Protocol: Document 11/13/20 12:17 [facility] (Rec: 11/13/20 12:33 [facility] [id number]) Cognitive Factors Limiting Selfcare Function Cognitive Ability Level of Alertness Alert Patient Orientation Name,Place,Situation Attention Span Ability Capable of Focused Attention, Capable of Sustained Attention Ability to Follow Commands Able to Follow One Step Commands Memory Description Short Term Impaired Safety Awareness Decreased Ability to Apply Precautions,Underestimates Need for Assistance Cognitive Comments Cognitive Assessment Comments Pt needing reminders for back precautions and also needing reminders of safety and sequence for log rolling as pt forgot what to do in getting up from supine. Pt not able to recall and correctly get up as PT saw pt just earlier in AM. Able to educated pt and for bed mobility needs. OT- Vision and Hearing OT- Hearing Assessment OT- Hearing Assessment WFL M7 OT- IP Mobility and Balance Start: 11/13/20 11:59 Freq: Status: Active Protocol: Document 11/13/20 12:17 [facility] (Rec: 11/13/20 12:33 [facility] [id number]) OT- Bed Mobility Assessment Rolling Type of Rolling Roll to Right Supine to Sit Supine to Sit Assist Standby Assistance Sit to Supine Sit to Supine Assist Standby Assistance OT-Transfer Assessment Sit to and From Stand Sit to and from Stand Standby Assistance Transfers Transfer Ability Standby Assistance Technique Transfer Destination Bed,Chair,Toilet Devices Transfer Assistive Devices None OT- Gait Assessment Comments Gait Ability Comments SBA in the room without a device. Mainly vc to not twist while turning and to be sure to picking supervisor his feet and , move like a robot. OT- Balance Assessment Sitting Balance and Reactions Static Sitting Balance Ability Normal Dynamic Sitting Balance Ability Normal Standing Balance and Reactions Static Standing Balance Ability Good M8 OT- IP Objective Assessments Start: 11/13/20 11:59 Freq: Status: Active Protocol: Document 11/13/20 12:17 [facility] (Rec: 11/13/20 12:33 [facility] [id number]) OT Gross Range of Motion Upper Extremity Range of Motion Assessment Bilaterally Impaired ROM Impairments Shoulder flexion bilaterally 0 -95. OT-Muscle Tone Assessment Muscle Tone WNL Yes M9 OT- IP Assessment and Plan Start: 11/13/20 11:59 Freq: Status: Active Protocol: Document 11/13/20 12:17 [facility] (Rec: 11/13/20 12:33 [facility] [id number]) OT Summary Assessment and Plan Potential Rehabilitation Potential Excellent Analytic Complexity at Evaluation Low Summary OT Impairments Balance,Functional Cognition, Functional Mobility,Dressing, Bathing,Shower Transfers Progress Towards Goals Progressing Toward Goals Assessment Summary Pt low complexity and main barriers are pt needing to slow down and having difficulty to incorporate his back precautions during bed mobility needs. Able to do caregiver training with pt and for dressing, bed mobility, transfers, and overall safety suggestions. Pt 's has good understanding for all needs to be able to assist pt at home. Goals Grooming Goal Independent Dressing Goal Independent Toileting Goal Independent Bathing Goal Standby Assistance Toilet Transfer Goal Independent Shower Transfer Goal Independent Patient/Caregiver Education Goal Demonstrate Post-Op Precautions Days to Meet Goals 1 Frequency of Treatment Frequency Of Treatment Once a Day Treatment Plan OT Treatment Plan ADL Training,Functional Cognition Training,Functional Mobility,Patient/Family Education,Discharge Planning Other Treatment Recommendations and Next shower if still here Treatment Focus Discharge Recommendations OT Discharge Recommendations Home with Assistance Home Equipment Needs shower chair? Transportation Needs at Discharge Private Vehicle
--- NOTE | 2020-11-13 12:20 | PC.NURSE ---
VSS. Discussed discharge paperwork. Questions answered. Wheeled to car, driving home. Off of unit at 12:15.
--- NOTE | 2020-11-13 13:33 | CM.DANOTE ---
Patient is a 70 year old male who was admitted on 11/12/20 for Lumbar Lami. Pt has MCR and PRE DIM for insurance and his PCP is Dr. Ovidio Beltre. EMR was reviewed. Per Ortho MD, pt tolerated procedure well and stable for d/c later today pending PT/OT eval and recommendations. SW met bedside with pt and explained role and he is very pleasant and confirms he lives at home in [place] with his spouse and is quite independent with ADL's, active, drives, and sometimes uses a cane. Pt has a hx of 2 other back surgeries but many years ago. Pt denies any hx of HH or SNF and feels safe for d/c home with spouse later today although still waiting for epidural to wear off and to ambulate fully with PT/OT. Pt preference is home and spouse will be bedside later this morning. Pt already established with outpt PT in [place] and plans to resume after d/c. Per PT/OT, recommending safe d/c home with spouse assist and outpt. Plan: Patient to d/c home via spouse POV and outpt PT follow up. No SW needs at this time. LANETTE Martinez Discharge Planning/Care Management CM Discharge Assessment Start: 11/13/20 13:27 Freq: Status: Active Protocol: Document 11/13/20 13:27 BF (Rec: 11/13/20 13:33 BF [id number]) Discharge Planning Assessment Assigned Allergy Specialist LANETTE Lujan DPOA/Assigned Designee Name spouse Karla Contact Information [phone] Advance Directives? Yes History Provided By Patient,Medical Record Has Patient been admitted in last 30 No days? Prior Living Arrangements House Household Members spouse Type of transporation used prior to Drives own vehicle admit Independent with ADL's Yes Is patient alert and oriented? Yes Caregiver for Another No Community Services used prior to Physical Therapy admission: DME Already Rented / Owned Cane Patient/Family Preference OP PT Therapy Barriers to Discharge No Discharge Plan Home Community Services Physical Therapy Transportation Arrangement Spouse will be bedside and will transport Referrals Initiated None needed Whiteboard Updated in Patient Room with Yes name and ext. # of Allergy Specialist Review Status In Process Please Provide Date Initial DC 11/13/20 Assessment Was Performed Next Review Type Continued Stay Review Pre-Anesthesia Assessment Start: 11/06/20 13:29 Freq: Status: Complete Protocol: Document 11/06/20 13:29 CAB (Rec: 11/06/20 14:54 CAB [id number]) Pre-Anesthesia Assessment Preferred Name Ray Patient Information Reviewed Via Phone Assessment Assessment Completed With Patient H&P Completed Within 30 Days Yes Diagnostic Results CBC,EKG Comment Labs/EKG @ [facility] 10/31/20, COVID screen 11/11/20 Primary Care Provider Ovidio Beltre Seen Specialist in Last 12 Months Yes Specialist Seen Orthopedist,Urologist Primary Language Montenegrin Private Investigator Required No Height 182.88 cm Weight 85.275 kg Body Mass Index (BMI) 25.4 Hearing Ability Normal Visual Assist Glasses Dentition Type Teeth, Natural Present,Teeth, Missing Barriers to Learning None Hx Anesthesia Reactions No Hx Family Anesthesia Reaction No Hx Malignant Hyperthermia No Hx Blood Transfusions No Anesthesia Review Requested No alcohol intake current alcohol intake frequency 0-2 drinks per day Smoking Status Former smoker Tobacco type cigarettes how long ago did patient quit smoking Quit 1977 Substance Use Type does not use Pain Present Pain Reported Musculoskeletal Symptoms Abnormal Gait,Back Pain, Difficulty Walking,Joint Pain, Radiating Pain into Limb History of Falling (Recent or History of No ) Patient is completely paralyzed or No completely immobile Mental Status Oriented to own ability Is patient on oxygen? No Does patient have CORTEZ/SOB No Hx Sleep Apnea No Currently Taking a Beta Umu No Hx Chest Pain No Hx SOB No Hx Syncope or Dizziness No Anti-Coagulant Therapy No Has a Resource Agent No Cardiac Testing No Hx Pacemaker/ICD No Pacemaker Rep Required? No Cardiac Clearance Received Not Applicable Diet Type At Home Regular dysphagia No Gastrointestinal Symptoms Constipation Bladder Pattern Frequency,Urgency Urinary Catheter Present No Hx Urinary Self Catheterization No Diabetes No Hx Drug Resistant Organism No Presence of External or Internal Medical Yes: Left eye Devices Have you had any close contact with No someone diagnosed with COVID-19? Marital Status Lives With spouse Prior Living Arrangements House Number of Floors (Floors) One Floor Support System Spouse Does the Patient Have Assistance After Yes Surgery Patient Discharge Plan Description Return Home Feels Safe in Current Environment Yes Been Physically Hurt or Threatened By a No Person in Current Environment Do you have thoughts of harming yourself None or others? Are you currently considering suicide? No Do you have a plan to hurt yourself or No Plan others? Do You Have Any Spiritual Beliefs That No May Affect Your HC Choices? Do You Have Any Cultural Practices That No May Affect Your HC Choices? Comment [facility] Proxy/Next of Kin Karla () Health Care Proxy Emergency Contact Name Karla () Emergency Contact Advance Directives? Yes PAC Instructions Assistance for 24 hours post- op,Medications to take/avoid, Nasal antibiotic,No ETOH/ petroleum product on skin DOS, Post-op transportation,Sturdy shoes/comfortable clothes,Do not bring valuables and remove jewelry Stop Bang Assessment Do you snore loudly (louder than talking Yes or loud enough to be heard through closed doors) Do you often feel tired, fatigued or No sleepy during the daytime Has anyone ever observed you stop No breathing while sleeping? Do you have, or are you being treated No for, high blood pressure Result Negative
== END 2020-11-13 12:15 | disposition home or self-care (01) ==
LOC: OR 12:21 → AC 12:21
PROVIDERS: PCP Family Medicine; Referring Provider Orthopaedic Surgery; Visit Provider Orthopaedic Surgery
PROC: (CPT 63047; principal; 2020-11-12 13:45)
DX: M48.062 Spinal stenosis, lumbar region with neurogenic claudication (principal); M51.16 Intervertebral disc disorders with radiculopathy, lumbar region
CPT/HCPCS: 63047; 63048; 36415; 72100; 76000; 82962; 85014; 85018; 94760; 97161; 97165; 97535; J0690; J1100; J2250; J2405; J2704; J3010

== ENCOUNTER → 2021-01-20 11:37 | Outpatient (CLI) | payer MEDICARE, OTHER, SELFPAY ==
[2020-11-12 17:20] VITALS: BMI 25.4
--- NOTE | 2021-01-20 11:45 | DI.RAD.S_ITS ---
PROCEDURE: XR SHOULDER RT MIN 2V INDICATIONS: RT SHOULDER PAIN TECHNIQUE: 3 views of the shoulder were acquired. COMPARISON: [facility], SHOULDER MINIMUM 2 VIEW LEFT, 09/09/2017, 10:26. [facility], SHOULDER MINIMUM 2 VIEW LEFT, 01/21/2015, 12:10. FINDINGS: Bones: No fractures or dislocations. No suspicious bony lesions. Visualized ribs appear intact. Moderate AC joint osteoarthritis on the right, mild glenohumeral joint osteoarthritic change, no trauma. Soft tissues: No suspicious soft tissue calcifications. IMPRESSION: Osteoarthritis as discussed, no trauma found. Dictated by: Jose Castle M.D. on 01/20/2021 at 13:39 Approved by: Jose Castle M.D. on 01/20/2021 at 13:40
== END ==
PROVIDERS: PCP Family Medicine; Referring Provider Orthopaedic Surgery; Visit Provider Orthopaedic Surgery
DX: M25.511 Pain in right shoulder (principal); M19.011 Primary osteoarthritis, right shoulder
CPT/HCPCS: 73030

== ENCOUNTER → 2021-02-05 09:32 | Outpatient (CLI) | payer MEDICARE, OTHER, SELFPAY ==
[2020-11-12 17:20] VITALS: BMI 25.4
--- NOTE | 2021-02-05 | DI.MRI.S_ITS ---
PROCEDURE: MR SHOULDER RT WO CON INDICATIONS: right shoulder pain TECHNIQUE: Noncontrast oblique coronal T2 fast spin echo with fat saturation, oblique sagittal T1 spin echo and T2 fast spin echo with fat saturation, axial T1 spin echo and T2 fast spin echo with fat saturation through the shoulder. COMPARISON: None. FINDINGS: Rotator cuff: Large full-thickness tear of the supraspinatus and infraspinatus tendons is noted measuring approximately 3 cm in the AP dimension as seen on sagittal image 9/10. This measures approximately 3.4 cm on coronal image 12/8. There is background severe supraspinatus and infraspinatus tendinopathy with interstitial tearing. Teres minor appears intact. Severe subscapularis tendinopathy and thickening, with low-grade bursal surface fraying. Atrophy of the supraspinatus muscle. There is also diffuse edema involving the supraspinatus muscle. There is fatty infiltration of the supraspinatus and infraspinatus muscles Bones and bursae: No bone marrow contusions or fractures. Moderate acromioclavicular joint degeneration. There is severe glenohumeral degenerative joint disease with full-thickness articular cartilage loss. Acromion demonstrates conventional anatomy, without an os acromiale. Capsule and soft tissues: Labrum: Circumferential labral tear which is chronic and low in signal intensity. There is associated fibrotic hypertrophy. Long head of the biceps tendinopathy. Complete obliteration of the subcoracoid fat signal intensity. Coracohumeral ligament intact. IMPRESSION: Large full-thickness tear of the supraspinatus and infraspinatus tendons. Severe background supraspinatus and infraspinatus tendinopathy with thickening, and interstitial tearing. Diffuse edema involving the supraspinatus muscle Severe subscapularis tendinopathy and thickening, with low-grade bursal surface fraying. Chronic circumferential labral tear with associated hypertrophic scarring. Advanced shoulder joint degeneration. Long head biceps tendinopathy. Dictated by: Chay Cruz M.D. on 02/05/2021 at 10:55 Approved by: Chay Cruz M.D. on 02/05/2021 at 11:26
== END ==
PROVIDERS: PCP Family Medicine; Referring Provider Family Medicine; Visit Provider Family Medicine
DX: M25.511 Pain in right shoulder (principal); M75.121 Complete rotator cuff tear or rupture of right shoulder, not specified as traumatic
CPT/HCPCS: 73221

== ENCOUNTER → 2023-03-10 11:04 | Outpatient (CLI) | payer MEDICARE, OTHER, SELFPAY ==
[2020-11-12 17:20] VITALS: BMI 25.4
--- NOTE | 2023-03-10 | DI.RAD.S_ITS ---
PROCEDURE: XR TOE RT MIN 2V INDICATIONS: Pain in right toe(s) TECHNIQUE: Frontal view of the foot two views of the 5th toe COMPARISON: None. FINDINGS: Bones: No fractures or dislocations. No suspicious bony lesions. Soft tissues: No suspicious soft tissue densities. IMPRESSION: No acute osseous abnormality. If symptoms persist, follow-up radiographs and/or CT or MRI may be helpful for further evaluation. Dictated by: Derek Mistry M.D. on 03/10/2023 at 14:15 Approved by: Derek Mistry M.D. on 03/10/2023 at 14:19
== END ==
PROVIDERS: PCP Family Medicine; Referring Provider Family Medicine; Visit Provider Family Medicine
DX: M79.674 Pain in right toe(s) (principal)
CPT/HCPCS: 73660

== ENCOUNTER 2023-03-20 13:00 | Emergency (ER) | payer MEDICARE, OTHER, SELFPAY ==
[2020-11-12 17:20] VITALS: BMI 25.4
--- NOTE | 2023-03-20 13:08 | DI.RAD.S_ITS ---
PROCEDURE: XR RIBS LT MIN 3V W CXR1V INDICATIONS: fall with posterior rib pain TECHNIQUE: 2 views of the left ribs were acquired, along with a single view chest. COMPARISON: None. FINDINGS: Surgical changes and devices: None. Bones and chest wall: Mildly displaced left posterolateral 6th, 7th, and 8th rib fractures. No suspicious bony lesions. Overlying soft tissues appear unremarkable. Lungs and pleura: No pleural effusions or pneumothorax. Lungs appear clear. Mediastinum: Mediastinal contours appear normal. Heart size is normal. IMPRESSION: Left rib fractures. Dictated by: Sarah Montejo M.D. on 03/20/2023 at 12:42 Approved by: Sarah Montejo M.D. on 03/20/2023 at 12:43
--- NOTE | 2023-03-20 13:08 | DI.RAD.S_ITS ---
PROCEDURE: XR SHOULDER LT MIN 2V INDICATIONS: fall with shoudler pain TECHNIQUE: 3 views of the shoulder were acquired. COMPARISON: [facility], CR, XR SHOULDER RT MIN 2V, 01/20/2021, 11:45. FINDINGS: Bones: No fractures or dislocations. No suspicious bony lesions. Visualized ribs appear intact. Periarticular osteophyte formation at the acromioclavicular and glenohumeral joints. Soft tissues: No suspicious soft tissue calcifications. IMPRESSION: Osteoarthritis. No acute fracture. No osseous lesion. If symptoms and/or clinical suspicion for pathology persist, further assessment with repeat, or advanced imaging (e.g., CT, MRI, or bone scan) may be helpful for further assessment. Dictated by: Sarah Montejo M.D. on 03/20/2023 at 12:42 Approved by: Sarah Montejo M.D. on 03/20/2023 at 12:42
[2023-03-20 13:10] VITALS: BP 196/109; PULSE 96; RESP 20; TEMP 36.6; O2SAT 96
--- NOTE | 2023-03-20 13:46 | ED.TRAUMA ---
HPI - Trauma General Chief Complaint: Extremity Injury, Upper Stated Complaint: INJURED RIBS/LT KNEE LAC/LT SHOULDER DUE TO FALL Time Seen by Provider: 03/20/23 13:04 Source: patient Mode of arrival: Family Vehicle History of Present Illness HPI narrative: 72-year-old male nonsmoker presents for injury suffered as a consequence of a ground level fall just prior to arrival. He was out walking his dog which was on a leash when 2 other dogs ran up next to him and in an attempt to separate them he twisted and fell onto his back suffering pain in his posterior ribs. He has a very small abrasion to the left side of his head but has full recall, denies any loss of consciousness, nausea or vomiting. He does not take blood thinners. He has no neck pain or other back pain. He does have some pain in his left shoulder from a small point of direct impact but full range of motion. n Related Data Home Medications Medication Instructions Recorded Confirmed testosterone cypionate 100 mg/mL 1 dose IM DIRECTED 04/19/18 11/12/20 intramuscular oil gabapentin 600 mg tablet 600 mg PO QID 11/06/20 11/12/20 rosuvastatin 5 mg tablet 5 mg PO QMWF 11/06/20 11/12/20 Previous Rx's Medication Instructions Recorded walker #1 ea 04/19/18 hydrocodone 5 mg-acetaminophen 325 1 tab PO Q4HR PRN Pain, Moderate 11/13/20 mg tablet (4-6) #10 tabs cyclobenzaprine 10 mg tablet 10 mg PO TID PRN muscle spasm #14 03/20/23 tabs hydrocodone 5 mg-acetaminophen 325 1 tab PO Q4-6H PRN pain #20 tabs 03/20/23 mg tablet lidocaine 5 % topical patch 1 patch topical DAILY #15 ea 03/20/23 (Lidoderm) Allergies Allergy/AdvReac Type Severity Reaction Status Date / Time No Known Drug Allergies Allergy Verified 03/20/23 13:14 Review of Systems Review of Systems Narrative: GENERAL: Denies chills, fatigue, malaise, fever, sweats. HEENT: Denies sinus pain, ear pain, sore throat, difficulty swallowing, dizziness. RESPIRATORY: See HPI CARDIOVASCULAR: Denies chest pain, palpitations, orthopnea, edema, GASTROINTESTINAL: Denies nausea, vomiting, abdominal pain, diarrhea, constipation, melena. : Denies dysuria, frequency, incontinence, hematuria, urinary retention. MUSCULOSKELETAL: denies weakness, joint pain, or bony pain SKIN: Denies rash, skin lesions, or other NEUROLOGIC: Denies weakness, headache, numbness, change in speech, confusion, seizures, incoordination. PSYCHIATRIC: No concerning psychosocial issues. 12 point review of systems is negative except for those stated above Patient History Medical History Arthritis Enlarged prostate History of Mohs micrographic surgery for skin cancer HLD (hyperlipidemia) Sciatica Surgical History H/O cataract extraction (2011) History of arthroscopy of both knees (1992) History of YAG laser capsulotomy of lens of left eye (11/2017) Hx of hernia repair (1950) Hx of laminectomy (12/1968) Hx of laminectomy (10/1992) Hx of tonsillectomy (1954) Hx of vitrectomy (09/09/11) Social History household members: spouse Smoking Status: Former smoker alcohol intake: current Smoking Status: Former smoker alcohol intake frequency: 0-2 drinks per day Substance Use Type: does not use Exam Narrative Exam Narrative: GENERAL: [72] year old patient appears stated age. Well-developed patient, in mild distress. HEAD: Atraumatic. Normocephalic. EYES: Pupils equal round and reactive. Extraocular motions intact. No scleral icterus. No injection or drainage. ENT: Nose without bleeding, purulent drainage. Throat without erythema, tonsillar hypertrophy or exudate. Airway patent. NECK: Trachea midline. Non tender CARDIOVASCULAR: Regular rate and rhythm without murmurs, gallops, or rubs. Left posterior ribs tender to palpation, no crepitance, no erythema no crackles RESPIRATORY: Clear to auscultation. Breath sounds equal bilaterally. No wheezes, rales, or rhonchi. GASTROINTESTINAL: Abdomen soft, non-tender, nondistended. EXTREMITIES: No edema or joint tenderness. Various minor superficial abrasions to fingers, left forearm and anterior knee, none worthy of repair BACK: Nontender without deformity or crepitance. No flank tenderness. NEURO: AOx3. SKIN: No rash or erythema of visible areas Initial Vital Signs Initial Vital Signs: Vital Signs Temperature 97.8 F 03/20/23 13:10 Pulse Rate 96 H 03/20/23 13:10 Respiratory Rate 20 03/20/23 13:10 Blood Pressure 196/109 H 03/20/23 13:10 Pulse Oximetry 96 03/20/23 13:10 Oxygen Delivery Method Room Air 03/20/23 13:10 Course Orders Ordered: ED Orders 03/20/23 13:08 XR ribs LT min 3V w CXR1V Stat XR shoulder LT min 2V Stat Discontinued Medications Lidocaine (Lidocaine Patch 1 Each Adh..Patch) 1 each TOP NOW ONE Stop: 03/20/23 13:56 Last Admin: 03/20/23 14:01 Dose: 1 each Documented By: RO Vital Signs Vital signs: Vital Signs - 8 hr 03/20/23 13:10 03/20/23 13:57 03/20/23 14:37 Temperature 97.8 F Pulse Rate 96 H 80 Respiratory Rate 20 Blood Pressure 196/109 H 168/93 H Pulse Oximetry 96 96 Oxygen Delivery Method Room Air Room Air MDM - Trauma MDM Narrative Medical decision making narrative: [72] year old patient presents with posterior rib pain after fall Multiple etiologies for patient's symptoms considered including, but not limited to: [Rib fractures, pneumothorax, shoulder injury versus other] Prior Charts reviewed in our EMR Primary Historian: patient Labs reviewed and interpreted by myself: Imaging reviewed: Chest x-ray shows 3 rib fractures, no pneumothorax Patient's symptoms improved over duration of stay with above-stated therapies. Pain well controlled, no evidence of pneumothorax. Very minor head injury and no indication for advanced imaging, no neck pain or true distracting injury. Findings and discharge diagnosis discussed with patient/family followed by verbalization of understanding Return precautions discussed with patient/family whom verbalize understanding of diagnosis and plan Discharge Plan Departure Patient Disposition: Home Clinical Impression: Fracture of rib of left side Instructions: DI for Rib Fracture Activity Restrictions/Additional Instructions: *You have been diagnosed with [ fall with posterior 6, 7, 8 rib fracture ] *What to do: *Please continue to take your regular medications as directed. [x] New medication prescriptions sent to your pharmacy: [[facility] in [place] ] [ ] New medication written as a paper prescription [ ] No new medications given *Please follow up with your primary care provider in 2-3 days, call for an appointment. Let them know you were seen in the Emergency Department and that we ask that you be seen in follow up. We will electronically transmit a record of today's note if your PCP is in our system *If you do not have a primary care provider please contact the [facility] Resource line at [phone]. They will ask some questions about your medical history and help get you set up with a doctor in the community. *Return to Emergency Department if you should have any new, worsening or concerning symptoms, such as [fever greater than 101 F, shaking chills, worsening pain, persistent vomiting or other bothersome symptoms] You have been prescribed a short course of narcotic medications. These are potentially dangerous and addictive medications that should be used carefully. While on these medications you cannot drive or operate heavy machinery. Additionally, you cannot sign legal documents or perform any duties such as this. Many people get constipated on narcotic medications so it would be advisable to discuss stool softeners with the pharmacist when you tack picker your prescription. Please understand that we cannot provide further refills of narcotics or controlled substances through the ED and your pain management will need to be through your Primary Care Provider Prescriptions: New hydrocodone-acetaminophen 5-325 mg tablet 1 tab PO Q4-6H PRN (Reason: pain) Qty: 20 0RF lidocaine [Lidoderm] 5 % adhesive patch,medicated 1 patch TOP DAILY Qty: 15 0RF Rx Instructions: leave on most painful area for 12 hrs cyclobenzaprine 10 mg tablet 10 mg PO TID PRN (Reason: muscle spasm) Qty: 14 0RF No Action testosterone cypionate 100 mg/mL oil 1 dose IM DIRECTED Patient Comments: [place] other [place] (DME[place] [facility] [place] Dose Instructions .ROUTE .MEDSUPPLY Qty: 1 0RF Dose Instruction: As directed Rx Instructions: As directed gabapentin 600 mg Tablet 600 mg PO QID rosuvastatin 5 mg Tablet 5 mg PO QMWF hydrocodone-acetaminophen 5-325 mg Tablet 1 tab PO Q4HR PRN (Reason: Pain, Moderate (4-6)) Qty: 10 0RF Referrals: Ovidio Beltre MD [Primary Care Provider] - Stand Alone Forms: Patient Portal/API
[2023-03-20 13:57] VITALS: BP 168/93
[2023-03-20] MEDS: LIDOCAINE PATCH 1 EACH ADH..PATCH TOP (14:01)
[2023-03-20 14:37] VITALS: PULSE 80; O2SAT 96
== END 2023-03-20 14:41 | disposition home or self-care (01) ==
PROVIDERS: Emergency Provider Emergency Medicine; PCP Family Medicine
DX: S22.32XA Fracture of one rib, left side, initial encounter for closed fracture (principal); W18.30XA Fall on same level, unspecified, initial encounter
CPT/HCPCS: 71101; 73030; 99283

== ENCOUNTER → 2024-01-01 11:10 | Outpatient (CLI) | payer MEDICARE, OTHER, SELFPAY ==
[2020-11-12 17:20] VITALS: BMI 25.4
--- NOTE | 2024-01-01 | DI.MRI.S_ITS ---
PROCEDURE: MR CERVICAL SPINE WO CON INDICATIONS: Cervicalgia TECHNIQUE: Noncontrast sagittal T1 spin echo and T2 fast spin echo, sagittal STIR, foraminal oblique sagittal T2 fast spin echo, and axial gradient echo or T2 fast spin echo through the cervical spine. COMPARISON: [facility], MR, C-SPINE WITHOUT CONTRAST, 09/22/2017, 12:42. FINDINGS: Image quality: Excellent. Alignment and Curvature: There is normal bony alignment. Bone Marrow: Marrow demonstrates normal overall signal. Spinal Cord: Visualized spinal cord has normal size and signal. No cerebellar tonsillar herniation. Paraspinous Soft Tissues: No paravertebral masses. Prevertebral soft tissues are normal in thickness. C2-C3: Minimal disc bulge. Borderline canal stenosis. Central canal measures 9.9 mm. Moderate to severe right foraminal narrowing with mild impingement on the exiting right C3 nerve root and moderate left foraminal narrowing. Right greater than left facet hypertrophy. No significant change. C3-C4: Progressive findings. Disc bulge abutting the cord. AP diameter of the central canal is 7.7 mm. Bilateral uncovertebral joint hypertrophy plus left foraminal disc bulge. Bilateral facet hypertrophy, right greater than left. Severe bilateral foraminal narrowing with bilateral foraminal C4 nerve root impingement. C4-C5: Progressive findings. Chronic disc height loss. Diffuse posterior disc post osteophyte. AP diameter of the central canal is 7.1 mm. Bilateral uncovertebral joint hypertrophy. Severe bilateral foraminal narrowing, right greater than left, with bilateral foraminal C5 nerve root impingement. C5: There is diffuse osteophyte present anterior to the cord resulting in canal stenosis. AP diameter of the canal is 7.1 mm. C5-C6: Progressive findings. Chronic disc height loss. Diffuse posterior disc post osteophyte flattens the cord. AP diameter of the central canal is 7.1 mm. Bilateral uncovertebral joint hypertrophy, left greater than right. Severe bilateral foraminal narrowing, with bilateral foraminal C6 nerve root impingement. C6-C7: Progressive findings. Chronic disc height loss. Diffuse posterior disc post osteophyte, eccentric to the left. Central canal measures 8.8 mm. Bilateral uncovertebral joint hypertrophy, with bilateral severe foraminal narrowing and bilateral foraminal C7 nerve root impingement. C7-T1: Disc bulge. No central canal stenosis. Bilateral uncovertebral joint hypertrophy. Moderate right foraminal narrowing and severe left foraminal narrowing. There is left foraminal C8 nerve root impingement. IMPRESSION: 1. Diffuse progressive findings with diffuse cervical spondylitic change. 2. Canal stenosis is borderline at C2-C3, moderate to severe at C3-C4, severe at C4-C5, behind C5, and at C5-C6. It is [id number] at C6-C7. 3. Significant multilevel foraminal narrowing as described above. At all levels from C2-C3 through C7-T1, there is foraminal nerve root impingement. It is unilateral on the right at C2-C3 and C7-T1. It is bilateral at all other cervical levels. Dictated by: Eleazar Muñoz M.D. on 01/03/2024 at 9:11 Approved by: Eleazar Muñoz M.D. on 01/03/2024 at 9:30
== END ==
LOC: MRI 11:11
PROVIDERS: PCP Family Medicine; Referring Provider Family Medicine; Visit Provider Family Medicine
DX: M48.02 Spinal stenosis, cervical region (principal); M47.812 Spondylosis without myelopathy or radiculopathy, cervical region; M54.10 Radiculopathy, site unspecified; M54.2 Cervicalgia
CPT/HCPCS: 72141

== ENCOUNTER → 2024-09-29 12:18 | Outpatient (CLI) | payer MEDICARE, OTHER, SELFPAY ==
[2020-11-12 17:20] VITALS: BMI 25.4
--- NOTE | 2024-09-29 | DI.RAD.S_ITS ---
PROCEDURE: XR LUMBAR SPINE 2-3V INDICATIONS: Low Back Pain TECHNIQUE: 3 views of the lumbar spine were acquired. COMPARISON: [facility], , XR LUMBAR SPINE 2-3V, 11/12/2020, 14:08. FINDINGS: Bones: 5 [id number] vertebrae are present. Mild levocurvature. Decreased osseous mineralization. Grade 1 anterolisthesis of L3 on L4 and L4 on L5. Grade 1 retrolisthesis of T12 on L1 and L1 on L2. Multilevel degenerative changes with disc height loss, osteophytosis and facet arthropathy, most severe at L5-S1. No vertebral body compression fractures. No suspicious bony lesions. Soft tissues: Overlying bowel gas pattern is normal. No suspicious soft tissue calcifications. Atherosclerotic vascular calcifications. IMPRESSION: Moderate multilevel degenerative changes of the lumbar spine, most severe at L5-S1. Dictated by: Usman Franklin M.D. on 09/29/2024 at 14:38 Approved by: Usman Franklin M.D. on 09/29/2024 at 14:40
--- NOTE | 2024-09-29 | DI.RAD.S_ITS ---
PROCEDURE: XR ABDOMEN 1V INDICATIONS: Low Back Pain TECHNIQUE: One view of the abdomen acquired. COMPARISON: None. FINDINGS: Surgical changes and devices: None. Bowel: Bowel gas pattern is normal. Moderate stool burden. Soft tissues: No suspicious abdominal calcifications. Visualized solid organ contours appear normal in size. Bones: No suspicious bony lesions. Degenerative changes of the spine. IMPRESSION: Moderate stool burden. Nonobstructive bowel gas pattern. Dictated by: Usman Franklin M.D. on 09/29/2024 at 14:38 Approved by: Usman Franklin M.D. on 09/29/2024 at 14:38
== END ==
PROVIDERS: PCP Family Medicine; Referring Provider Family Medicine; Visit Provider Family Medicine
DX: M47.816 Spondylosis without myelopathy or radiculopathy, lumbar region (principal); M47.817 Spondylosis without myelopathy or radiculopathy, lumbosacral region; M54.50 Low back pain, unspecified
CPT/HCPCS: 72100; 74018

== ENCOUNTER → 2025-04-26 10:22 | Outpatient (CLI) | payer MEDICARE, OTHER, SELFPAY ==
[2020-11-12 17:20] VITALS: BMI 25.4
[2025-04-26 10:58] LABS: Hematocrit 48.1 % (41-53); Hemoglobin 16.2 g/dL (13.5-17.5); Mean Corpuscular HGB Conc 33.8 % (30-36); Mean Corpuscular Hemoglobin 31.8 PG (26-34); Mean Corpuscular Volume 94.2 fL (80-100); Platelet Count 177 X10^3/uL (150-400); Red Blood Cell Count 5.11 X10^6/uL (4.5-5.9); Red Cell Distribution Width 13.7 % (11.6-14.8); White Blood Cell Count 6.8 X10^3/uL (4.5-11.0)
[2025-04-26 11:24] LABS: Alanine Aminotransferase 40 IU/L (<50); Albumin 4.1 g/dL (3.5-5.0); Albumin Globulin Ratio 1.5 (1.0-2.8); Alkaline Phosphatase 54 U/L (38-126); Aspartate Aminotransferase 41 IU/L (17-59); BUN Creatinine Ratio 18.1 (6-22); Blood Urea Nitrogen 15 mg/dL (9-20); Carbon Dioxide 31 mmol/L (22-32); Chloride 99 mmol/L (98-107); Cholesterol 185 mg/dL (140-199); Estimated Glomerular Filt Rate > 60 mL/min (>60); Globulin 2.7 g/dL (1.7-4.1); Glucose 98 mg/dL (70-99); HDL Cholesterol 40 mg/dL (40-60); HEMOLYSIS < 15 (0-50); LDL Cholesterol Calculated 116 mg/dL (<100); Potassium 4.6 mmol/L (3.4-5.1); Sodium 136 mmol/L (137-145); Total Protein 6.8 g/dL (6.3-8.2); Triglycerides 143 mg/dL (35-150)
[2025-04-26 11:57] LABS: Testosterone 2080 ng/dL (71.8-623)
== END ==
PROVIDERS: PCP Family Medicine; Referring Provider Family Medicine; Visit Provider Family Medicine
DX: E29.1 Testicular hypofunction (principal); E78.00 Pure hypercholesterolemia, unspecified; E78.49 Other hyperlipidemia; R73.9 Hyperglycemia, unspecified; I10 Essential (primary) hypertension; Z13.220 Encounter for screening for lipoid disorders; Z13.0 Encounter for screening for diseases of the blood and blood-forming organs and certain disorders involving the immune mechanism; Z13.228 Encounter for screening for other metabolic disorders
CPT/HCPCS: 36415; 80053; 80061; 84403; 85027

== ENCOUNTER → 2025-06-06 19:26 | Outpatient (CLI) | payer MEDICARE, OTHER, SELFPAY ==
[2020-11-12 17:20] VITALS: BMI 25.4
--- NOTE | 2025-06-06 19:29 | DI.MRI.S_ITS ---
PROCEDURE: MR HEAD/BRAIN WO CON INDICATIONS: Tinnitus TECHNIQUE: Non-contrast axial T1 spin echo, axial T2 fast spin echo, sagittal and axial FLAIR, coronal T2 fast spin echo, axial gradient echo, axial diffusion and ADC through the brain. COMPARISON: None. FINDINGS: Image quality: Excellent. CSF spaces: Ventricles appear symmetric in size and shape. Basal cisterns are patent. No extra-axial fluid collections. Brain: No intracranial bleeds or mass effects. There is cerebral volume loss for age. There are periventricular and deep white matter chronic small vessel ischemic changes. Brainstem appears normal. Diffusion-weighted images show no acute infarct. No chronic ischemic insults. Normal intravascular flow voids are present. In this patient with this given history, scrutiny is given to cerebellopontine angle cisterns and to the internal auditory canals. To the limits of this standard protocol study, no masses can be seen within these regions. Skull and face: Calvarial bone marrow is normal in signal. Orbits are normal. There is a left lens replacement. Sinuses: Sinuses and mastoids are clear. IMPRESSION: No imaging explanation is found for this patient's presenting symptoms. To the limits of this noncontrast study, no findings of intracranial masses or mass effect can be seen, including within the cerebellopontine angle cisterns and the internal auditory canals. Dictated by: Jesus Herrera M.D. on 06/07/2025 at 18:04 Approved by: Jesus Herrera M.D. on 06/07/2025 at 18:05
== END ==
PROVIDERS: PCP Family Medicine; Referring Provider Family Medicine; Visit Provider Family Medicine
DX: H93.12 Tinnitus, left ear (principal); H93.19 Tinnitus, unspecified ear
CPT/HCPCS: 70551